=== PATIENT | female | born 1995 | race Caucasian/White ===

== ENCOUNTER 2019-06-03 19:09 | Emergency (ER) | payer OTHER ==
[~2019-06-03] VITALS: Ht 162.6 cm; Wt 54.4 kg
[2019-06-03 19:24] VITALS: BP 120/80
[2019-06-03] MEDS ORDERED: DICL50TA4 PO (20:30)
[2019-06-03] MEDS ORDERED: METH4TAB2 PO (20:30)
--- NOTE | 2019-06-03 20:32 | PHYS DOC ---
Past Medical History Past Medical History: No Pertinent History Past Surgical History: Other Additional Past Surgical Histo: TUBES IN EARS. WISDOM TEETH. Alcohol Use: None Drug Use: None Adult General Chief Complaint Chief Complaint: WRIST PAIN HPI HPI Patient is a 23 year old female with no significant medical history who presents to the ED today complaining of a sharp intermittent 8 out of 10 distal left forearm pain, left wrist pain, symptoms began a week ago, no known injury. Pain is worse on touching and moving the wrist. Denies anything specifically rel ieving the pain. Review of Systems Review of Systems Constitutional: Denies fever or chills [] Musculoskeletal: Reports left wrist and left forearm pain Integument: Denies rash or skin lesions [] Neurologic: Denies headache, focal weakness or sensory changes [] All other systems were reviewed and found to be within normal limits, except as documented in this note. Allergies Allergies Allergies Coded Allergies Type Severity Reaction Last Updated Verified No Known Drug Allergies 06/03/19 No Physical Exam Physical Exam Constitutional: Well developed, well nourished, no acute distress, non-toxic appearance. [] Skin: Warm, dry, no erythema, no rash. [] Back: No tenderness, no CVA tenderness. [] Extremities: Left wrist and left forearm with no obvious deformity. Diffuse tenderness throughout the wrist on palpation, no scaphoid tenderness. Full range of motion to the left wrist and left hand. Adequate radial, medial, ulnar sensation to the left hand. +2 left radial pulse. Cap refill less than 2 seconds the left fingers. Neurologic: Alert and oriented X 3, normal motor function, normal sensory function, no focal deficits noted. [] Psychologic: Affect normal, judgement normal, mood normal. [] Current Patient Data Vital Signs Vital Signs Date Time Temp Pulse Resp B/P (MAP) Pulse Ox O2 Delivery O2 Flow Rate FiO2 06/03/19 19:24 98.9 105 18 120/80 (93) 98 Room Air 98.9 EKG EKG [] Radiology/Procedures Radiology/Procedures [] Course & Med Decision Making Course & Med Decision Making Pertinent Labs and Imaging studies reviewed. (See chart for details) This is a 23-year-old female patient presented to the ED today with complaints of left wrist and left distal forearm pain one week, no known injury. X-rays of the left wrist interpreted by Dr. Alvarado were negative for any acute findings. Ice elevation encouraged. Given prescription for Medrol Dosepak and diclofenac. Provided orthopedic doctor for follow-up in one week. Guille bandage applied to the wrist by the ED RN, neurovascular exam is intact. Dragon Disclaimer Dragon Disclaimer This electronic medical record was generated, in whole or in part, using a voice recognition dictation system. Departure Departure Impression: Primary Impression: Pain in left wrist Additional Impression: Left forearm pain Disposition: HOME, SELF-CARE Condition: STABLE Referrals: UNKNOWN PCP NAME (PCP) RICHARD MILLER II, MD follow up in 1 week Patient Instructions: Wrist Pain, [id number] Additional Instructions: You were evaluated in the emergency room my your x-rays were negative for any acute findings. We provided you an orthopedic doctor, contact the office on Saturday and set up a follow-up appointment. Try to ice and elevate the extremity. Scripts Methylprednisolone (MEDROL) 4 Mg Tab.ds.pk 1 PKG PO UD, #1 PKG Prov: EDMAR ACHARYA APRN 06/03/19 Diclofenac Sodium (DICLOFENAC SODIUM) 50 Mg Tablet.dr 1 TAB PO BID, #20 TAB 0 Refills Prov: EDMAR ACHARYA APRN 06/03/19 Problem Qualifiers EDMAR ACHARYA APRN Jun 03, 2019 20:31
--- NOTE | 2019-06-03 21:55 | RAD ---
Three-view left wrist radiographs 06/03/2019 CLINICAL HISTORY: Left wrist pain for 2 weeks. PA, lateral and oblique digital radiographs of the left wrist were obtained. No fracture or dislocation of the left wrist is seen. No radiopaque foreign body is noted. IMPRESSION: No acute osseous abnormality is seen. Electronically signed by: Lei Lemon MD (06/03/2019 9:53 PM) [facility]
== END 2019-06-03 20:47 | disposition home or self-care (01) ==
LOC: ER 19:09
DX: M25.532 Pain in left wrist (principal); M79.632 Pain in left forearm
CPT/HCPCS: 73110; 99284